=== PATIENT | female | born 1975 | race Two or more races ===

== ENCOUNTER 2022-01-13 12:48 | Emergency (ER) | payer OTHER ==
[~2022-01-13] VITALS: Ht 157.5 cm; Wt 69.9 kg
[2022-01-13] MEDS ORDERED: COZAAR100 MG PO (13:07)
[2022-01-13] MEDS ORDERED: NORVASC10 MG PO (13:07)
[2022-01-13] MEDS ORDERED: DICY20TA PO (18:04)
== END 2022-01-13 18:13 | disposition home or self-care (01) ==
LOC: ER 12:48 → EDBD 12:52 → ER 18:13
DX: K80.50 Calculus of bile duct without cholangitis or cholecystitis without obstruction (principal); R10.9 Unspecified abdominal pain; Z91.013 Allergy to seafood

== ENCOUNTER 2022-01-29 05:55 | Day surgery (SDC) | payer OTHER ==
[~2022-01-29 05:55] MED LIST: COZAAR100 MG PO; DICY20TA PO; LOSARTAN-HCTZ1 EAC1 PO; NORVASC10 MG PO; NORVASC5 MG PO
[2022-01-29] MEDS ORDERED: PERCOCET 5-3251 EACH PO (14:22)
== END 2022-01-29 17:20 | disposition home or self-care (01) ==
LOC: CIR.AMB 05:55
PROVIDERS: ATTEND Surgery
DX: K81.1 Chronic cholecystitis (principal); Z91.013 Allergy to seafood; K83.8 Other specified diseases of biliary tract; I10 Essential (primary) hypertension; K21.9 Gastro-esophageal reflux disease without esophagitis